=== PATIENT | male | born 1980 | race African-American/Black ===

== ENCOUNTER 2020-02-25 07:26 | Emergency (ER) | payer SELFPAY ==
[2020-02-25] MEDS ORDERED: Lasix 40 MG/4 ML IV ONE (07:42)
--- NOTE | 2020-02-25 07:47 | ERPHSYRPT ---
- History of Present Illness Time Seen by Provider: 02/25/20 07:30 Source: patient Exam Limitations: no limitations Physician History: The patient is a 39-year-old male with a reported history of "cardiomyopathy" that he states is "genetic" and who is also status post what sounds like a pacemaker defibrillator reportedly placed in 2019 presents with a chief complaint of shortness of breath. Onset reportedly was yesterday. He states he normally takes Lasix daily and finished his last dose yesterday and has not taken any today. He states he is visiting from [facility], specifically visiting his girlfriend and has not been taking his medications as prescribed. Of note, the patient was a very poor historian. He can tell me that his device is a [employer]. His shift engineer is reportedly Dr. Sorenson in [facility] at [facility] In addition to his shortness of breath he also complained of dyspnea on exertion as well as orthopnea. He denies chest pain, palpitations, dizziness, syncope. He also complained of acute on chronic low back pain. He denies history of PE or DVT and reportedly does not take any anticoagulants. He is supposed to take a baby aspirin daily. He is also reportedly supposed to be taking Entresto which she is not been taking as prescribed. Allergies/Adverse Reactions: No Known Drug Allergies Allergy (Verified 02/25/20 07:46) Home Medications: Furosemide 20 mg [Lasix 20 mg] 20 mg PO DAILY 02/25/20 [History] carvediloL [Carvedilol] 25 mg PO BID 02/25/20 [History] - Review of Systems Constitutional: No Fever, No Chills Eyes: No Symptoms Ears, Nose, & Throat: No Symptoms Respiratory: Dyspnea, Dyspnea on Exertion (FIERRO), Other (Orthopnea), No Cough Cardiac: No Chest Pain, No Edema, No Palpitations Abdominal/Gastrointestinal: No Abdominal Pain, No Nausea, No Vomiting Musculoskeletal: Back Pain Skin: No Symptoms Neurological: No Symptoms Psychological: No Symptoms Hematologic/Lymphatic: No Symptoms Immunological/Allergic: No Symptoms All Other Systems: Reviewed and Negative - Nursing Vital Signs Nursing Vital Signs: Initial Vital Signs Pulse Rate 107 H 02/25/20 07:27 Respiratory Rate 25 H 02/25/20 07:27 Blood Pressure 153/92 02/25/20 07:27 O2 Sat by Pulse Oximetry 99 02/25/20 07:27 Pain Scale Pain Intensity 0 - Physical Exam General Appearance: mild distress Eye Exam: PERRL/EOMI, eyes nml inspection, scleral icterus Ears, Nose, Throat Exam: No pharyngeal erythema, No tonsillar exudate Neck Exam: normal inspection, supple Respiratory Exam: diminished breath sounds, crackles/rales (Fine early inspiratory crackles noted in bilateral lower lobes when ausculatating posteriorly) Cardiovascular Exam: regular rate/rhythm, normal peripheral pulses, murmur, capillary refill <2 sec, No friction rub, No gallop, No edema, No pulse deficit Gastrointestinal/Abdomen Exam: soft, No tenderness, No distention, No mass Back Exam: normal inspection Extremity Exam: normal inspection, other (No asymmetric calf tenderness, swelling, or erythema to suggest DVT), No pedal edema, No swelling, No tenderness Neurologic Exam: alert, oriented x 3, cooperative SpO2: 99 - Course Nursing assessment & vital signs reviewed: Yes EKG Interpreted by Me: RATE, Other (Atrial-sensed ventricular-paced rhythm, No evidence of acute myocardial ischemia or injury pattern. Right axis deviation, Normal GA interval) - Radiology Exams Chest X-ray Interpretation: Reviewed by me (Pulmonary vascular congestion and small bilateral pleural effusions) - CT Exams Chest CT Interpretation: No PE (pulmonary edema, small bilateral pleural effusions), Other Ordered Tests: Active Orders 24 hr Category Date Time Status Nutrition Faculty Member STAT Care 02/25/20 07:43 Active EKG-ER Only STAT Care 02/25/20 07:42 Active IV Insertion STAT Care 02/25/20 07:42 Active Pulse Oximetry (ED) STAT Care 02/25/20 07:42 Active CHEST 2 VIEWS (PA AND LAT) Stat Exams 02/25/20 07:42 Completed CHEST WITH CONTRAST [CT] Stat Exams 02/25/20 08:21 Completed BMP Stat Lab 02/25/20 06:20 Completed CBC W DIFF Stat Lab 02/25/20 06:20 Completed D-DIMER QUANTITATIVE Stat Lab 02/25/20 06:20 Completed Hepatic Function Panel Stat Lab 02/25/20 06:20 Completed MAGNESIUM Stat Lab 02/25/20 06:20 Completed Manual Differential NC Stat Lab 02/25/20 06:20 Completed NT PRO BNP Stat Lab 02/25/20 06:20 Completed PHOSPHOROUS Stat Lab 02/25/20 06:20 Completed TROPONIN Q3H Lab 02/25/20 06:20 Completed TROPONIN Q3H Lab 02/25/20 10:45 Ordered TROPONIN Q3H Lab 02/25/20 13:45 Ordered TROPONIN Q3H Lab 02/25/20 16:45 Ordered TROPONIN Q3H Lab 02/25/20 19:45 Ordered UA W/RFX UR CULTURE Stat Lab 02/25/20 07:45 Completed Urine Triage Profile Stat Lab 02/25/20 07:55 Completed Transfer Order Routine Transfer 02/25/20 Ordered Medication Summary Discontinued Medications Generic Name Dose Route Start Last Admin Trade Name Maik PRN Reason Stop Dose Admin Fentanyl Citrate 50 mcg 02/25/20 08:30 02/25/20 08:33 Sublimaze 100 Mcg/2 Ml IV 02/25/20 08:31 50 mcg STAT ONE Administration Fentanyl Citrate Confirm 02/25/20 08:32 Sublimaze 100 Mcg/2 Ml Administered 02/25/20 08:33 Dose 100 mcg .ROUTE .STK-MED ONE Furosemide 20 mg 02/25/20 07:42 02/25/20 07:55 Lasix 40 Mg/4 Ml IV 02/25/20 07:43 20 mg STAT ONE Administration Furosemide Confirm 02/25/20 07:53 Lasix 40 Mg/4 Ml Administered 02/25/20 07:54 Dose 40 mg .ROUTE .STK-MED ONE Oxycodone/Acetaminophen 1 tab 02/25/20 08:29 02/25/20 08:33 Percocet Tablet 5/325mg PO 02/25/20 08:30 1 tab STAT ONE Administration Oxycodone/Acetaminophen Confirm 02/25/20 08:32 Percocet Tablet 5/325mg Administered 02/25/20 08:33 Dose 1 tab .ROUTE .STK-MED ONE Lab/Rad Data: Laboratory Result Diagrams 02/25/20 06:20 02/25/20 06:20 Laboratory Results 02/25/20 02/25/20 02/25/20 Range/Units 07:55 07:45 06:20 WBC (4.0-10.5) K/mm3 RBC (4.1-5.6) M/mm3 Hgb (12.5-18.0) gm/dl Hct (42-50) % MCV (78-100) fl MCH (26-32) pg MCHC (32-36) g/dl RDW (11.5-14.0) % Plt Count (150-450) K/mm3 MPV (7.5-11.0) fl Segmented Neutrophils (36.-66.) % Band Neutrophils (0.0-2.0) % Lymphocytes (Manual) (24-44) % Monocytes (Manual) (0.0-12.0) % Platelet Estimate (NORMAL) RBC Morphology D-Dimer (215-500) ng/mL Sodium (137-145) mmol/L Potassium (3.5-5.1) mmol/L Chloride (98-107) mmol/L Carbon Dioxide (22-30) mmol/L Anion Gap (5-15) MEQ/L BUN (9-20) mg/dL Creatinine (0.66-1.25) mg/dL Estimated GFR ML/MIN Glucose (74-106) mg/dL Calcium (8.4-10.2) mg/dL Phosphorus (2.5-4.5) mg/dL Magnesium (1.6-2.3) mg/dL Total Bilirubin (0.2-1.3) mg/dL Direct Bilirubin (0.0-0.4) mg/dL AST (17-59) U/L ALT (0-50) U/L Alkaline Phosphatase (38-126) U/L Troponin I 0.016 (0.000-0.034) ng/mL NT-Pro-B Natriuret Pep (0-450) pg/mL Serum Total Protein (6.3-8.2) g/dL Albumin (3.5-5.0) g/dL Urine Color YELLOW (YELLOW) Urine Appearance CLEAR (CLEAR) Urine pH 5.0 (5-6) Ur Specific Duvall 1.016 (1.005-1.025) Urine Protein NEGATIVE (Negative) Urine Ketones NEGATIVE (NEGATIVE) Urine Blood SMALL (0-5) Alberto/ul Urine Nitrite NEGATIVE (NEGATIVE) Urine Bilirubin NEGATIVE (NEGATIVE) Urine Urobilinogen NEGATIVE (0-1) mg/dL Ur Leukocyte Esterase NEGATIVE (NEGATIVE) Urine WBC (Auto) NONE (0-5) /HPF Urine RBC (Auto) NONE (0-2) /HPF U Epithel Cells (Auto) NONE (FEW) /HPF Urine Bacteria (Auto) NONE (NEGATIVE) /HPF Urine Mucus (Auto) SLIGHT (NEGATIVE) /HPF Urine Culture Reflexed NO (NO) Urine Glucose NEGATIVE (NEGATIVE) mg/dL Urine Opiates Level NEGATIVE (NEGATIVE) Ur Methadone NEGATIVE (NEGATIVE) Urine Barbiturates NEGATIVE (NEGATIVE) Ur Phencyclidine (PCP) NEGATIVE (NEGATIVE) Urine Amphetamine POSITIVE (NEGATIVE) U Benzodiazepine Level NEGATIVE (NEGATIVE) Urine Cocaine NEGATIVE (NEGATIVE) Urine Marijuana (THC) POSITIVE (NEGATIVE) 02/25/20 02/25/20 02/25/20 Range/Units 06:20 06:20 06:20 WBC 12.4 H (4.0-10.5) K/mm3 RBC 5.61 H (4.1-5.6) M/mm3 Hgb 16.1 (12.5-18.0) gm/dl Hct 48.2 (42-50) % MCV 85.9 (78-100) fl MCH 28.7 (26-32) pg MCHC 33.4 (32-36) g/dl RDW 13.8 (11.5-14.0) % Plt Count 218 (150-450) K/mm3 MPV 10.3 (7.5-11.0) fl Segmented Neutrophils 63 (36.-66.) % Band Neutrophils 2 (0.0-2.0) % Lymphocytes (Manual) 33 (24-44) % Monocytes (Manual) 2 (0.0-12.0) % Platelet Estimate NORMAL (NORMAL) RBC Morphology NORMAL D-Dimer 1336 H* (215-500) ng/mL Sodium 137 (137-145) mmol/L Potassium 4.8 (3.5-5.1) mmol/L Chloride 105 (98-107) mmol/L Carbon Dioxide 24 (22-30) mmol/L Anion Gap 12.3 (5-15) MEQ/L BUN 14 (9-20) mg/dL Creatinine 1.04 (0.66-1.25) mg/dL Estimated GFR > 60.0 ML/MIN Glucose 116 H (74-106) mg/dL Calcium 10.0 (8.4-10.2) mg/dL Phosphorus 3.6 (2.5-4.5) mg/dL Magnesium 1.8 (1.6-2.3) mg/dL Total Bilirubin 0.60 (0.2-1.3) mg/dL Direct Bilirubin 0.1 (0.0-0.4) mg/dL AST 36 (17-59) U/L ALT 36 (0-50) U/L Alkaline Phosphatase 54 (38-126) U/L Troponin I (0.000-0.034) ng/mL NT-Pro-B Natriuret Pep 538 H (0-450) pg/mL Serum Total Protein 8.0 (6.3-8.2) g/dL Albumin 4.6 (3.5-5.0) g/dL Urine Color (YELLOW) Urine Appearance (CLEAR) Urine pH (5-6) Ur Specific Duvall (1.005-1.025) Urine Protein (Negative) Urine Ketones (NEGATIVE) Urine Blood (0-5) Alberto/ul Urine Nitrite (NEGATIVE) Urine Bilirubin (NEGATIVE) Urine Urobilinogen (0-1) mg/dL Ur Leukocyte Esterase (NEGATIVE) Urine WBC (Auto) (0-5) /HPF Urine RBC (Auto) (0-2) /HPF U Epithel Cells (Auto) (FEW) /HPF Urine Bacteria (Auto) (NEGATIVE) /HPF Urine Mucus (Auto) (NEGATIVE) /HPF Urine Culture Reflexed (NO) Urine Glucose (NEGATIVE) mg/dL Urine Opiates Level (NEGATIVE) Ur Methadone (NEGATIVE) Urine Barbiturates (NEGATIVE) Ur Phencyclidine (PCP) (NEGATIVE) Urine Amphetamine (NEGATIVE) U Benzodiazepine Level (NEGATIVE) Urine Cocaine (NEGATIVE) Urine Marijuana (THC) (NEGATIVE) - Progress Progress: improved Progress Note: 02/25/20 08:05 The patient's pharmacy is a [facility] and we managed to find a medication list which shows that he has not had any Lasix filled since December 30, 2018. I also did an inspect report and noted that the patient only had tramadol and alprazolam prescribed in 2019, specifically in October. 02/25/20 08:05 I also researched the patient's cardiology office and will attempt to have the nurse to obtain records and have them faxed to our location, specifically any recent echocardiograms, cardiac catheterization report or cardiology progress notes. 02/25/20 08:06 Nontoxic in appearance. The patient presents with shortness of breath and orthopnea in the context of reported cardiomyopathy which I suspect to be from diastolic CHF and possible HOCM. This is likely secondary to medication n oncompliance. I will obtain labs to include CBC, BMP, BNP, cardiac markers and a two-view chest x-ray for further evaluation. Ongoing administer 20 mg of Lasix IV since it appears she is on 20 mg of Lasix p.o. I suspect this patient may need hospitalization and potential transfer to a facility with cardiology capability. 02/25/20 08:24 Chest x-ray reviewed and appears consistent with pulmonary vascular congestion. Also has cardiomegaly and his pacemaker AICD leads appear to be in place. His dimer is elevated and will follow up with a CTA of his chest to eval for PE. 02/25/20 09:04 I reviewed the patient's CTA and it appears he has no evidence of a PE and was some interstitial edema. Currently awaiting formal radiology review and report. Chest x-ray report from radiology is suggesting pulmonary vascular congestion with small bilateral pleural effusions. The patient's urine drug screen came back positive for amphetamines and marijuana. I plan on discussing the patient's use of amphetamines after his work-up is complete. 02/25/20 09:40 The patient ambulated while monitoring his SPO2 reading and got as low as 89% on room air but immediately improved while above 90% while at rest. His chest x- ray is reviewed and consistent with pulmonary edema with small bilateral pleural effusions and his CTA showed no evidence of PE. The radiologist appeared to be hedging and stated he cannot rule out an infective infiltrate however based on the patient's clinical symptomatology and exam findings and history I do not believe he is suffering from pneumonia at this time and therefore antibiotics were deferred. He did receive 20 mg of Lasix and had already urinated twice while in the emergency department. He was receptive to staying at this location at least for observation for diuresis. I did speak to the on-call admitting physician who agreed to admit the patient at this facility for observation while the patient is diuresed and the plan is to start the patient back on his prescribed medications before discharge. Given [place] and a poor historian I am concerned he cannot be safely discharged from the emergency department given that he will likely not be able to follow-up with his shift engineer within the next 24 to 48 hours in addition to potential that social situation, specifically that his girlfriend actually drove him from [place] to this location and he has no way getting back promptly. 02/25/20 09:46 I did asked about the patient's drug use, specifically any amphetamine use such as methamphetamines or IV drug use and the patient adamantly denies this. It is possible that the amphetamine resulting in his urine could be a false positive. , I am currently waiting for records to be faxed over from his shift engineer office located in [place]. Once these arrive, these will be scanned into his chart. Discussed with DrMacario: Taylor - Departure Departure Disposition: Observation Clinical Impression: Acute on chronic congestive heart failure, Dyspnea, Acute exacerbation of chronic low back pain, Noncompliance with medication regimen, Hypertension Condition: Stable Critical Care Time: No Referrals: DOCTOR,NO FAMILY [Primary Care Provider] - Instructions: Heart Failure
[2020-02-25] MEDS ORDERED: Lasix 40 MG/4 ML ONE (07:53)
[2020-02-25 08:01] LABS: Appearance CLEAR (CLEAR); Bilirubin NEGATIVE (NEGATIVE); Blood SMALL Ery/ul (0-5); Glucose NEGATIVE (NEGATIVE); Ketones NEGATIVE (NEGATIVE); Leukocyte Esterase NEGATIVE (NEGATIVE); Mucus SLIGHT /HPF (NEGATIVE); Nitrite NEGATIVE (NEGATIVE); Protein,Urine Dip NEGATIVE (Negative); Specific Gravity 1.016 (1.005-1.025); Urobilinogen NEGATIVE mg/dL (0-1)
[2020-02-25 08:01] LABS: Hematocrit 48.2 % (42-50); Hemoglobin 16.1 gm/dl (12.5-18.0); Mean Cell Volume 85.9 fl (78-100); Mean Corpuscular Hemoglobin 28.7 pg (26-32); Mean Corpuscular Hgb Concent. 33.4 g/dl (32-36); Mean Platelet Volume 10.3 fl (7.5-11.0); Platelet Count 218 K/mm3 (150-450); Red Blood Count 5.61 M/mm3 (4.1-5.6); Red Cell Distribution Width 13.8 % (11.5-14.0); White Blood Count 12.4 K/mm3 (4.0-10.5)
[2020-02-25 08:23] LABS: Barbiturate,Urine NEGATIVE (NEGATIVE); Benzodiazepine,Urine NEGATIVE (NEGATIVE); Cocaine,Urine NEGATIVE (NEGATIVE); Methadone,Urine NEGATIVE (NEGATIVE); Opiate,Urine NEGATIVE (NEGATIVE); PCP,Urine NEGATIVE (NEGATIVE); THC,Urine POSITIVE (NEGATIVE)
[2020-02-25 08:26] LABS: BAND 2 % (0.0-2.0); Lymphocytes 33 % (24-44); Monocyte 2 % (0.0-12.0); Neutrophils 63 % (36.-66.); Platelet Estimate NORMAL (NORMAL); Total Cells Counted 100
[2020-02-25] MEDS ORDERED: PERCOCET TABLET 5/325MG PO ONE (08:29)
[2020-02-25] MEDS ORDERED: SUBLIMAZE 100 MCG/2 ML IV ONE (08:30)
[2020-02-25] MEDS ORDERED: SUBLIMAZE 100 MCG/2 ML ONE (08:32)
[2020-02-25] MEDS ORDERED: PERCOCET TABLET 5/325MG ONE (08:32)
[2020-02-25 08:41] LABS: ALBUMIN 4.6 g/dL (3.5-5.0); ALKALINE PHOSPHATASE 54 U/L (38-126); ANION GAP 12.3 MEQ/L (5-15); BLOOD UREA NITROGEN 14 mg/dL (9-20); CHLORIDE 105 mmol/L (98-107); Carbon Dioxide 24 mmol/L (22-30); Creatinine 1 1.04 mg/dL (0.66-1.25); Direct Bilirubin 0.1 mg/dL (0.0-0.4); EST GLOMERULAR FILTRATION RATE > 60.0 ML/MIN; Glucose 116 mg/dL (74-106); MAGNESIUM 1.8 mg/dL (1.6-2.3); NT PRO BNP 538 pg/mL (0-450); PHOSPHOROUS 3.6 mg/dL (2.5-4.5); Potassium 4.8 mmol/L (3.5-5.1); SGOT/AST 36 U/L (17-59); SGPT/ALT 36 U/L (0-50); SODIUM 137 mmol/L (137-145)
[2020-02-25 08:44] LABS: Amphetamine,Urine POSITIVE (NEGATIVE)
--- NOTE | 2020-02-25 08:53 | XRAY ---
Indication: Short of breath. Comparison: None PA/lateral chest demonstrates mild pulmonary interstitial edema and tiny bibasilar effusions. Heart is borderline enlarged with left AICD. Bony thorax intact.
--- NOTE | 2020-02-25 09:20 | XRAY ---
Indication: Short of breath. Elevated d-dimer. Multiple contiguous axial images obtained through the chest using 80 cc Isovue 370 contrast and PE protocol. Comparison: None There is good opacification of the pulmonary arteries to include the lobar and segmental branches. No pulmonary embolus. Heart is enlarged with a left-sided AICD. No pericardial effusion. Aorta is normal in course and caliber without aneurysm/dissection. No pathologic mediastinal/hilar lymphadenopathy. Lungs demonstrates mild pulmonary edema with small bilateral effusions and minimal bibasilar subsegmental atelectasis/scarring. No suspicious pulmonary mass, focal infiltrate, or consolidation. Bony thorax intact with minimal degenerative changes throughout the spine. Limited upper abdomen including adrenal glands are unremarkable. Impression: 1. Negative pulmonary embolus. 2. Cardiomegaly, pulmonary edema, and bilateral effusions. Rule out cardiac decompensation. Superimposed pneumonia not completely excluded.
[2020-02-25] MEDS ORDERED: COREG 12.5 MG PO STA (09:48)
[2020-02-25] MEDS: TYLENOL EXTRA STRENGTH 500 MG PO PRN ×2 (19:58→23:52)
[2020-02-25] MEDS: COREG 12.5 MG PO SCH (21:40)
[2020-02-25] MEDS ORDERED: NON-FORMULARY ITEM (Carvedilol [Carvedilol] 25 MG) PO SCH (22:00)
[2020-02-26] MEDS: TYLENOL EXTRA STRENGTH 500 MG PO PRN (04:30)
[2020-02-26 05:21] LABS: Hematocrit 48.7 % (42-50); Hemoglobin 16.1 gm/dl (12.5-18.0); Mean Corpuscular Hemoglobin 28.4 pg (26-32); Mean Corpuscular Hgb Concent. 33.1 g/dl (32-36); Mean Platelet Volume 10.4 fl (7.5-11.0); Platelet Count 219 K/mm3 (150-450); Red Blood Count 5.66 M/mm3 (4.1-5.6); Red Cell Distribution Width 13.8 % (11.5-14.0); White Blood Count 10.9 K/mm3 (4.0-10.5)
[2020-02-26 05:45] LABS: ANION GAP 9.9 MEQ/L (5-15); BLOOD UREA NITROGEN 19 mg/dL (9-20); CHLORIDE 101 mmol/L (98-107); Calcium 9.5 mg/dL (8.4-10.2); Carbon Dioxide 26 mmol/L (22-30); Creatinine 1 1.01 mg/dL (0.66-1.25); EST GLOMERULAR FILTRATION RATE > 60.0 ML/MIN; Glucose 103 mg/dL (74-106); NT PRO BNP 311 pg/mL (0-450); Potassium 3.8 mmol/L (3.5-5.1); SODIUM 134 mmol/L (137-145)
[2020-02-26 07:23] VITALS: O2SAT 96
[2020-02-26] MEDS: COREG 12.5 MG PO SCH (09:43)
[2020-02-26] MEDS ORDERED: LASIX 20 MG PO SCH (10:00)
[2020-02-26 12:20] VITALS: BP 107/62; PULSE 93
--- NOTE | 2020-02-26 20:23 | PCM.SSS ---
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 Onset reportedly was yesterday. He states he normally takes Lasix daily and finished his last dose yesterday and has not taken any today. He states he is visiting from [facility], specifically visiting his girlfriend and has not been taking his medications as prescribed. Of note, the patient was a very poor historian. He can tell me that his device is a [employer]. His diet therapist is reportedly Dr. Mcgarry in [facility] at [facility] In addition to his shortness of breath he also complained of dyspnea on exertion as well as orthopnea. He denies chest pain, palpitations, dizziness, syncope. He also complained of acute on chronic low back pain. He denies history of PE or DVT and reportedly does not take any anticoagulants. He is supposed to take a baby aspirin daily. He is also reportedly supposed to be taking Entresto which he is not been taking as prescribed. - Review of Systems Constitutional: Weakness, No Fever, No Chills Eyes: No Symptoms Ears, Nose, & Throat: No Symptoms Respiratory: No Cough, No Short Of Breath Cardiac: Chest Pain, No Edema, No Syncope Abdominal/Gastrointestinal: No Abdominal Pain, No Nausea, No Vomiting, No Diarrhea Genitourinary Symptoms: No Dysuria Musculoskeletal: No Back Pain, No Neck Pain Skin: No Rash Neurological: No Dizziness, No Focal Weakness, No Sensory Changes Psychological: No Symptoms Endocrine: No Symptoms Hematologic/Lymphatic: No Symptoms Immunological/Allergic: No Symptoms Medications & Allergies Home Medications: Home Medication List Furosemide 20 mg [Lasix 20 mg] 20 mg PO DAILY #30 tablet 02/26/20 [Rx] carvediloL [Carvedilol] 25 mg PO BID #60 tablet 02/26/20 [Rx] Allergies/Adverse Reactions: Allergies Allergy/AdvReac Type Severity Reaction Status Date / Time No Known Drug Allergies Allergy Verified 02/25/20 07:46 - Past Medical History Past Medical History: Yes Neurological History: No Pertinent History ENT History: No Pertinent History Cardiac History: Hypertension Respiratory History: No Pertinent History Endocrine Medical History: No Pertinent History Musculoskelatal History: No Pertinent History GI Medical History: No Pertinent History History: No Pertinent History Pyscho-Social History: No Pertinent History Male Reproductive Disorders: No Pertinent History Comment: cardiomyopathy - Past Surgical History Past Surgical History: Yes Neuro Surgical History: No Pertinent History Cardiac History: Internal Defibrillator Respiratory Surgery: No Pertinent History GI Surgical History: Appendectomy Genitourinary Surgical Hx: No Pertinent History Musculskeletal Surgical Hx: No Pertinent History Male Surgical History: No Pertinent History Other Surgical History: defibulator 2019 - Social History Smoking Status: Former smoker Exposure to second hand smoke: No Alcohol: Rarely Drug Use: none - Physical Exam Vital Signs: Vital Signs - 24 hr Temp Pulse Resp BP Pulse Ox 02/26/20 12:00 98.4 F 93 H 16 107/62 96 02/26/20 07:23 98.3 F 86 17 115/61 96 02/26/20 06:48 94 L 02/26/20 04:00 98.3 F 91 H 16 118/71 96 02/25/20 23:59 98.0 F 67 14 105/62 92 L General Appearance: no apparent distress, alert Neurologic Exam: alert, oriented x 3, cooperative, normal mood/affect, nml cerebellar function, nml station & gait, sensation nml, No motor deficits Eye Exam: PERRL/EOMI, eyes nml inspection Ears, Nose, Throat Exam: normal ENT inspection, TMs normal, pharynx normal, moist mucous membranes Neck Exam: normal inspection, non-tender, supple, full range of motion Respiratory Exam: normal breath sounds, lungs clear, No respiratory distress Cardiovascular Exam: regular rate/rhythm, normal heart sounds, normal peripheral pulses Gastrointestinal/Abdomen Exam: soft, normal bowel sounds, No tenderness, No mass Back Exam: normal inspection, normal range of motion, No CVA tenderness, No vertebral tenderness Extremity Exam: normal inspection, normal range of motion, pelvis stable Skin Exam: normal color, warm, dry, No rash Lymphatic Exam: No adenopathy Results - Labs Lab/Micro Results: Lab Results-Last 24 Hours 02/25/20 02/26/20 02/26/20 Range/Units 19:45 04:32 04:32 WBC 10.9 H (4.0-10.5) K/mm3 RBC 5.66 H (4.1-5.6) M/mm3 Hgb 16.1 (12.5-18.0) gm/dl Hct 48.7 (42-50) % MCV 86.0 (78-100) fl MCH 28.4 (26-32) pg MCHC 33.1 (32-36) g/dl RDW 13.8 (11.5-14.0) % Plt Count 219 (150-450) K/mm3 MPV 10.4 (7.5-11.0) fl Sodium 134 L (137-145) mmol/L Potassium 3.8 D (3.5-5.1) mmol/L Chloride 101 (98-107) mmol/L Carbon Dioxide 26 (22-30) mmol/L Anion Gap 9.9 (5-15) MEQ/L BUN 19 (9-20) mg/dL Creatinine 1.01 (0.66-1.25) mg/dL Estimated GFR > 60.0 ML/MIN Glucose 103 (74-106) mg/dL Calcium 9.5 (8.4-10.2) mg/dL Troponin I < 0.012 (0.000-0.034) ng/mL NT-Pro-B Natriuret Pep 311 (0-450) pg/mL - Radiology Impressions Radiology Exams & Impressions: Radiology Procedures Category Date Time Status CHEST 2 VIEWS (PA AND LAT) Stat Exams 02/25/20 07:42 Completed CHEST WITH CONTRAST [CT] Stat Exams 02/25/20 08:21 Completed Assessment/Plan (1) Acute on chronic congestive heart failure Status: Acute Qualifiers: Heart failure type: combined systolic and diastolic Qualified Code(s): I50.43 - Acute on chronic combined systolic (congestive) and diastolic (congestive) heart failure Assessment & Plan: Chief Complaint Diagnosis Acute on Chornic diastolic CHF exacerbation Allergies Allergy/AdvReac Type Severity Reaction Status Date / Time No Known Drug Allergies Allergy Verified 02/25/20 07:46 Vital Signs (Last 24 hours) Temp Pulse Resp BP Pulse Ox 02/26/20 12:00 98.4 F 93 H 16 107/62 96 02/26/20 07:23 98.3 F 86 17 115/61 96 02/26/20 06:48 94 L 02/26/20 04:00 98.3 F 91 H 16 118/71 96 02/25/20 23:59 98.0 F 67 14 105/62 92 L Home Medications Medication Instructions Recorded Confirmed Last Taken Type Furosemide 20 mg [Lasix 20 20 mg PO DAILY #30 tablet 02/26/20 Unknown Rx mg] carvediloL [Carvedilol] 25 mg PO BID #60 tablet 02/26/20 Unknown Rx Current Medications Discontinued Medications Generic Name Dose Route Start Last Admin Trade Name Freq PRN Reason Stop Dose Admin Acetaminophen 500 mg 02/25/20 19:55 02/26/20 04:30 Tylenol Extra Strength 500 Mg PO 03/26/20 19:54 500 mg Q4H PRN PRN Administration PAIN Carvedilol 25 mg 02/25/20 09:48 02/25/20 10:20 Coreg 12.5 Mg PO 02/25/20 09:49 25 mg STAT STA Administration Carvedilol 25 mg 02/25/20 22:00 02/26/20 09:43 Coreg 12.5 Mg PO 03/26/20 21:59 25 mg BID TRUDY Administration Fentanyl Citrate 50 mcg 02/25/20 08:30 02/25/20 08:33 Sublimaze 100 Mcg/2 Ml IV 02/25/20 08:31 50 mcg STAT ONE Administration Fentanyl Citrate Confirm 02/25/20 08:32 Sublimaze 100 Mcg/2 Ml Administered 02/25/20 08:33 Dose 100 mcg .ROUTE .STK-MED ONE Furosemide 20 mg 02/25/20 07:42 02/25/20 07:55 Lasix 40 Mg/4 Ml IV 02/25/20 07:43 20 mg STAT ONE Administration Furosemide Confirm 02/25/20 07:53 Lasix 40 Mg/4 Ml Administered 02/25/20 07:54 Dose 40 mg .ROUTE .STK-MED ONE Furosemide 20 mg 02/26/20 10:00 02/26/20 09:43 Lasix 20 Mg PO 03/27/20 09:59 20 mg DAILY TRUDY Administration Oxycodone/Acetaminophen 1 tab 02/25/20 08:29 02/25/20 08:33 Percocet Tablet 5/325mg PO 02/25/20 08:30 1 tab STAT ONE Administration Oxycodone/Acetaminophen Confirm 02/25/20 08:32 Percocet Tablet 5/325mg Administered 02/25/20 08:33 Dose 1 tab .ROUTE .STK-MED ONE Intake & Output (Last 24 hours) 02/24/20 02/25/20 02/26/20 02/27/20 11:59 11:59 11:59 11:59 Intake Total 1420 Balance 1420 Weight 97.522 kg Laboratory Results (Last 24 hours) 02/26/20 02/26/20 02/25/20 04:32 04:32 19:45 WBC 10.9 H RBC 5.66 H Hgb 16.1 Hct 48.7 MCV 86.0 MCH 28.4 MCHC 33.1 RDW 13.8 Plt Count 219 MPV 10.4 Sodium 134 L Potassium 3.8 D Chloride 101 Carbon Dioxide 26 Anion Gap 9.9 BUN 19 Creatinine 1.01 Estimated GFR > 60.0 Glucose 103 Calcium 9.5 Troponin I < 0.012 NT-Pro-B Natriuret Pep 311 Orders (Last 24 hours) Category Date Time Status Discharge Routine Discharge 02/26/20 Ordered BMP AM.LAB Lab 02/26/20 04:32 Completed CBC AM.LAB Lab 02/26/20 04:32 Completed NT PRO BNP AM.LAB Lab 02/26/20 04:32 Completed TROPONIN Q3H Lab 02/25/20 19:45 Completed Acetaminophen 500 mg [Tylenol Extra Strength 500 mg* Med 02/25/20 19:55 Discontinued ] 500 mg PO Q4H PRN PRN Carvedilol 12.5 mg [Coreg 12.5 mg] Med 02/25/20 22:00 Discontinued 25 mg PO BID Furosemide 20 mg [Lasix 20 mg] Med 02/26/20 10:00 Discontinued 20 mg PO DAILY EKG IN AM RT 02/26/20 06:00 Completed Pulse Oximetry .spot check RT 02/26/20 05:05 Active Code(s): I50.9 - HEART FAILURE, UNSPECIFIED (2) Hypertension Status: Acute Qualifiers: Hypertension type: essential hypertension Qualified Code(s): I10 - Essential (primary) hypertension Code(s): I10 - ESSENTIAL (PRIMARY) HYPERTENSION (3) Noncompliance with medication regimen Status: Acute Code(s): Z91.14 - PATIENT'S OTHER NONCOMPLIANCE WITH MEDICATION REGIMEN Hospital Summary - Hospital Course Hospital Course: Last Vital Signs Temp 98.4 F 02/26/20 12:00 Pulse 93 H 02/26/20 12:00 Resp 16 02/26/20 12:00 BP 107/62 02/26/20 12:00 Pulse Ox 96 02/26/20 12:00 Allergies No Known Drug Allergies Allergy (Verified 02/25/20 07:46) Intake & Output 02/26/20 02/27/20 11:59 11:59 Intake Total 1420 Balance 1420 Orders 02/26/20 Discharge Routine 02/26/20 05:05 Pulse Oximetry .spot check Lab Tests 02/25/20 02/26/20 02/26/20 19:45 04:32 04:32 WBC 10.9 H RBC 5.66 H Hgb 16.1 Hct 48.7 MCV 86.0 MCH 28.4 MCHC 33.1 RDW 13.8 Plt Count 219 MPV 10.4 Sodium 134 L Potassium 3.8 D Chloride 101 Carbon Dioxide 26 Anion Gap 9.9 BUN 19 Creatinine 1.01 Estimated GFR > 60.0 Glucose 103 Calcium 9.5 Troponin I < 0.012 NT-Pro-B Natriuret Pep 311 - Vitals & Intake/Output Vital Signs: Vital Signs Temperature 98.4 F 02/26/20 12:00 Pulse Rate 93 H 02/26/20 12:00 Respiratory Rate 16 02/26/20 12:00 Blood Pressure 107/62 02/26/20 12:00 O2 Sat by Pulse Oximetry 96 02/26/20 12:00 Intake & Output: Intake & Output 02/24/20 02/25/20 02/26/20 02/27/20 11:59 11:59 11:59 11:59 Intake Total 1420 Balance 1420 Weight 97.522 kg - Lab Result Diagrams: 02/26/20 04:32 02/26/20 04:32 Lab Results-Last 24 Hrs: Lab Results-Last 24 Hours 02/25/20 02/26/20 02/26/20 Range/Units 19:45 04:32 04:32 WBC 10.9 H (4.0-10.5) K/mm3 RBC 5.66 H (4.1-5.6) M/mm3 Hgb 16.1 (12.5-18.0) gm/dl Hct 48.7 (42-50) % MCV 86.0 (78-100) fl MCH 28.4 (26-32) pg MCHC 33.1 (32-36) g/dl RDW 13.8 (11.5-14.0) % Plt Count 219 (150-450) K/mm3 MPV 10.4 (7.5-11.0) fl Sodium 134 L (137-145) mmol/L Potassium 3.8 D (3.5-5.1) mmol/L Chloride 101 (98-107) mmol/L Carbon Dioxide 26 (22-30) mmol/L Anion Gap 9.9 (5-15) MEQ/L BUN 19 (9-20) mg/dL Creatinine 1.01 (0.66-1.25) mg/dL Estimated GFR > 60.0 ML/MIN Glucose 103 (74-106) mg/dL Calcium 9.5 (8.4-10.2) mg/dL Troponin I < 0.012 (0.000-0.034) ng/mL NT-Pro-B Natriuret Pep 311 (0-450) pg/mL - Radiology Exams Ordered Rad Exams-Entire Visit: Radiology Procedures Category Date Time Status CHEST 2 VIEWS (PA AND LAT) Stat Exams 02/25/20 07:42 Completed CHEST WITH CONTRAST [CT] Stat Exams 02/25/20 08:21 Completed - Procedures and Test Procedures and Tests throughout Hospitalization: Therapy Orders & Screens 02/25/20 11:31 Oxygen NASAL CANNULA 2 lpm Comment: Diagnosis: CHF 02/26/20 06:00 EKG IN AM Comment: - Discharge Discharge Date: 02/26/20 Disposition: Home, Self-Care Condition: Stable Prescriptions: Continue carvediloL [Carvedilol] 25 mg PO BID #60 tablet Furosemide 20 mg [Lasix 20 mg] 20 mg PO DAILY #30 tablet Instructions: Heart Failure, Adult (DC), Shortness of Breath (Dyspnea) (DC) Additional Instructions: FOLLOW-UP WITH YOUR BRUSH CLEARER SURVEYING, DR. MCGARRY, TO DISCUSS SLEEP STUDY. Forms: Discharge Instructions
== END 2020-02-26 13:57 | disposition home or self-care (01) ==
LOC: ED 07:26 → MED SURG 11:10
PROVIDERS: ADMIT General Practice; ATTEND General Practice
DX: I11.0 Hypertensive heart disease with heart failure (principal); I50.33 Acute on chronic diastolic (congestive) heart failure; Z91.14 Patient's other noncompliance with medication regimen; Z79.899 Other long term (current) drug therapy
CPT/HCPCS: 36000; 36415; 71046; 71260; 80048; 80076; 80307; 81001; 83735; 83880; 84100; 84484; 85025; 85027; 85379; 93005; 93041; 93268; 94760; 96374; 96375; 99285; G0378; U0003; J1940; J3010; A9270-GY

== ENCOUNTER 2020-10-19 04:22 | Emergency (ER) | payer SELFPAY ==
[2020-10-19] MEDS ORDERED: PROTONIX 40 MG IV IV ONE ×2 (04:52→04:56)
[2020-10-19] MEDS ORDERED: GI COCKTAIL 45 ML (Maalox/Lidocaine) PO ONE (04:52)
[2020-10-19] MEDS ORDERED: MAALOX ES 30 ML UNIT DOSE ONE (04:57)
[2020-10-19] MEDS ORDERED: XYLOCAINE HCl Viscous ONE (04:57)
--- NOTE | 2020-10-19 05:04 | ERPHSYRPT ---
<DELL BREWER - Last Filed: 10/19/20 06:59> - History of Present Illness Time Seen by Provider: 10/19/20 04:50 Historian: patient Exam Limitations: no limitations Patient Subjective Stated Complaint: pt states he started having mid chest pain last night, pain got better, he went to sleep and woke up with pain again this morning. Triage Nursing Assessment: pt alert and oriented, answers questions approp. pt ambulatory with steady gait noted. respirations nonlabored with lungs cta. skin cool and clammy. heart rate 90 on monitor, sinus rhythm on monitor. Physician History: 40 years old -[place] male with history of cardiomyopathy status post pacemaker/defibrillator placement, hypertension, GERD not on any medication presented in the ER with sudden onset substernal/epigastric area burning chest pain last night which improved after taking Pepto-Bismol, patient went to bed and waking him up again almost half an hour prior to arrival. Patient reports earlier it was 9/10 intensity and currently improved to 2/10 without having any shortness of breath at any point. No palpitations. Reports having similar symptoms in the past as well. No history of stenting/CAD. Timing/Duration: yesterday, improved Activities at Onset: sleep Quality: burning Location: central, epigastric Chest Pain Radiation: no radiation Severity of Pain-Max: severe Severity of Pain-Current: mild Modifying Factors: Improves With: antacids, sitting up. Worsens With: lying down Associated Symptoms: heartburn, No nausea, No vomiting, No palpitations, No abdominal pain, No shortness of breath, No cough, No hurts to breathe, No diaphoresis, No fever, No fatigue, No weakness, No swelling/lump in chest, No syncope Prior Chest Pain/Cardiac Workup: cardiac cath Nitro Today/Relief: no nitro taken today Aspirin Treatment Today: 81 mg x 3 Allergies/Adverse Reactions: No Known Drug Allergies Allergy (Verified 02/25/20 07:46) Home Medications: Aspirin EC 81 mg [Ecotrin 81 mg] 243 mg PO BID 10/19/20 [History] Furosemide 20 mg [Lasix 20 mg] 40 mg PO DAILY 10/19/20 [History] Sacubitril/Valsartan [Entresto 24 mg-26 mg Tablet] 1 each PO BID 10/19/20 [History] Hx Tetanus, Diphtheria Vaccination/Date Given: Yes Hx Influenza Vaccination/Date Given: No Hx Pneumococcal Vaccination/Date Given: No Immunizations Up to Date: Yes Travel Risk - International Travel Have you traveled outside of the country in past 3 weeks: No - Coronavirus Screening Are you exhibiting any of the following symptoms?: Yes Symptoms: Shortness of Breath, Vomiting/Diarrhea, Headaches/Body Aches/Fatigue Close contact with a COVID-19 positive Pt in past 14-21 Days: Yes - Vaccine Status Have you recieved a Covid-19 vaccination: No - Review of Systems Constitutional: No Symptoms Eyes: No Symptoms Ears, Nose, & Throat: No Symptoms Respiratory: No Symptoms Cardiac: Chest Pain Abdominal/Gastrointestinal: No Symptoms Genitourinary Symptoms: No Symptoms Musculoskeletal: No Symptoms Skin: No Symptoms Neurological: No Symptoms Psychological: No Symptoms Endocrine: No Symptoms Hematologic/Lymphatic: No Symptoms Immunological/Allergic: No Symptoms - Past Medical History Pertinent Past Medical History: Yes Neurological History: No Pertinent History ENT History: No Pertinent History Cardiac History: Hypertension, Other Respiratory History: No Pertinent History Endocrine Medical History: No Pertinent History Musculoskeletal History: No Pertinent History GI Medical History: No Pertinent History History: No Pertinent History Psycho-Social History: No Pertinent History Male Reproductive Disorders: No Pertinent History Other Medical History: cardiomyopathy - Past Surgical History Past Surgical History: Yes Neuro Surgical History: No Pertinent History Cardiac: Internal Defibrillator Respiratory: No Pertinent History Gastrointestinal: Appendectomy Genitourinary: No Pertinent History Musculoskeletal: No Pertinent History Male Surgical History: No Pertinent History Other Surgical History: defibulator 2019 - Social History Smoking Status: Former smoker Exposure to second hand smoke: No Drug Use: none Patient Lives Alone: No - Physical Exam General Appearance: no apparent distress, alert Eye Exam: PERRL/EOMI Ears, Nose, Throat Exam: normal ENT inspection, pharynx normal Neck Exam: normal inspection, non-tender, supple, full range of motion Respiratory Exam: normal breath sounds, lungs clear Cardiovascular Exam: regular rate/rhythm, normal heart sounds Gastrointestinal/Abdomen Exam: soft, normal bowel sounds, No tenderness Back Exam: normal inspection, normal range of motion Extremity Exam: normal inspection, normal range of motion Neurologic Exam: alert, oriented x 3, cooperative, can worker II-XII nml as tested Skin Exam: normal color SpO2 Interpretation: normal SpO2: 99 O2 Delivery: Room Air - Course EKG Interpreted by Me: RATE (86), Sinus Rhythm, NORMAL AXIS, NORMAL INTERVALS, Other (Paced) - Progress Progress: improved Air Movement: good Progress Note: 10/19/20 06:59 40 years old is evaluated for substernal burning sensations. Given GI cocktail and Protonix, on reevaluation his pain is completely resolved. Negative initial troponins. Chest x-ray reviewed by me did not reveal any acute findings. Official report is pending. We will obtain second troponin and if negative patient will be discharged. Reviewed history and work-up with Dr. Khan incoming physician at shift change and he will reevaluate patient after second troponin make decision about disposition. Counseled pt/family regarding: lab results, diagnosis, need for follow-up, rad results - Departure Clinical Impression: Chest pain Condition: Stable Referrals: DOCTOR,NO FAMILY [Primary Care Provider] - Instructions: Chest Pain (DC) Additional Instructions: Continue current medications Follow up with your racing secretary and handicapper in 1-2 days Return to ER for worsening chest pain or increasing shortness of breath <JACK KHAN - Last Filed: 10/19/20 08:29> - Nursing Vital Signs Nursing Vital Signs: Initial Vital Signs Temperature 97.2 F 10/19/20 04:23 Pulse Rate 90 10/19/20 04:23 Respiratory Rate 18 10/19/20 04:23 Blood Pressure 137/95 10/19/20 04:23 O2 Sat by Pulse Oximetry 99 10/19/20 04:23 Pain Scale Pain Intensity 0 Ordered Tests: Active Orders 24 hr Category Date Time Status Dining Room Cashier STAT Care 10/19/20 04:51 Active EKG-ER Only STAT Care 10/19/20 04:50 Active IV Insertion STAT Care 10/19/20 04:50 Active CHEST 1 VIEW (PORTABLE) Stat Exams 10/19/20 04:51 Taken CBC W DIFF Stat Lab 10/19/20 04:50 Completed CMP Stat Lab 10/19/20 04:50 Completed NT PRO BNP Stat Lab 10/19/20 04:50 Completed TROPONIN Q3H Lab 10/19/20 05:00 Completed TROPONIN Q3H Lab 10/19/20 07:50 Completed TROPONIN Q3H Lab 10/19/20 11:00 Ordered TROPONIN Q3H Lab 10/19/20 14:00 Ordered TROPONIN Q3H Lab 10/19/20 17:00 Ordered Medication Summary Discontinued Medications Generic Name Dose Route Start Last Admin Trade Name Maik PRN Reason Stop Dose Admin Al Hydrox/Mg Hydrox/Simethicone Confirm 10/19/20 04:57 Maalox Es 30 Ml Unit Dose Administered 10/19/20 04:58 Dose 30 ml .ROUTE .STK-MED ONE Lidocaine HCl Confirm 10/19/20 04:57 Xylocaine Hcl Viscous * Administered 10/19/20 04:58 Dose 15 ml .ROUTE .STK-MED ONE Magnesium Hydroxide 45 ml 10/19/20 04:52 10/19/20 05:04 Gi Cocktail 45 Ml (Maalox/Lidocaine) PO 10/19/20 04:53 45 ml STAT ONE Administration Pantoprazole Sodium 40 mg 10/19/20 04:52 10/19/20 05:04 Protonix 40 Mg Iv IV 10/19/20 04:53 40 mg STAT ONE Administration Pantoprazole Sodium Confirm 10/19/20 04:56 Protonix 40 Mg Iv Administered 10/19/20 04:57 Dose 40 mg IV .STK-MED ONE Lab/Rad Data: Laboratory Result Diagrams 10/19/20 04:50 10/19/20 04:50 Laboratory Results 10/19/20 10/19/20 10/19/20 Range/Units 07:50 05:00 04:50 WBC (4.0-10.5) K/mm3 RBC (4.1-5.6) M/mm3 Hgb (12.5-18.0) gm/dl Hct (42-50) % MCV (78-100) fl MCH (26-32) pg MCHC (32-36) g/dl RDW (11.5-14.0) % Plt Count (150-450) K/mm3 MPV (7.5-11.0) fl Gran % (36.0-66.0) % Eos # (Auto) (0-0.5) Absolute Lymphs (auto) (1.0-4.6) Absolute Monos (auto) (0.0-1.3) Lymphocytes % (24.0-44.0) % Monocytes % (0.0-12.0) % Eosinophils % (0.00-5.0) % Basophils % (0.0-0.4) % Absolute Granulocytes (1.4-6.9) Basophils # (0-0.4) Sodium 139 (137-145) mmol/L Potassium 4.1 (3.5-5.1) mmol/L Chloride 106 (98-107) mmol/L Carbon Dioxide 21 L (22-30) mmol/L Anion Gap 16.2 H (5-15) MEQ/L BUN 20 (9-20) mg/dL Creatinine 1.13 (0.66-1.25) mg/dL Estimated GFR > 60.0 ML/MIN Glucose 102 (74-106) mg/dL Calcium 9.2 (8.4-10.2) mg/dL Total Bilirubin 0.30 (0.2-1.3) mg/dL AST 28 (17-59) U/L ALT 27 (0-50) U/L Alkaline Phosphatase 59 (38-126) U/L Troponin I < 0.012 < 0.012 (0.000-0.034) ng/mL NT-Pro-B Natriuret Pep 407 (0-450) pg/mL Serum Total Protein 7.2 (6.3-8.2) g/dL Albumin 4.2 (3.5-5.0) g/dL 10/19/20 Range/Units 04:50 WBC 10.6 H (4.0-10.5) K/mm3 RBC 5.86 H (4.1-5.6) M/mm3 Hgb 16.7 (12.5-18.0) gm/dl Hct 50.5 H (42-50) % MCV 86.2 (78-100) fl MCH 28.5 (26-32) pg MCHC 33.1 (32-36) g/dl RDW 13.7 (11.5-14.0) % Plt Count 225 (150-450) K/mm3 MPV 10.8 (7.5-11.0) fl Gran % 45.5 (36.0-66.0) % Eos # (Auto) 0.25 (0-0.5) Absolute Lymphs (auto) 4.52 (1.0-4.6) Absolute Monos (auto) 0.98 (0.0-1.3) Lymphocytes % 42.5 (24.0-44.0) % Monocytes % 9.2 (0.0-12.0) % Eosinophils % 2.3 (0.00-5.0) % Basophils % 0.5 (0.0-0.4) % Absolute Granulocytes 4.84 (1.4-6.9) Basophils # 0.05 (0-0.4) Sodium (137-145) mmol/L Potassium (3.5-5.1) mmol/L Chloride (98-107) mmol/L Carbon Dioxide (22-30) mmol/L Anion Gap (5-15) MEQ/L BUN (9-20) mg/dL Creatinine (0.66-1.25) mg/dL Estimated GFR ML/MIN Glucose (74-106) mg/dL Calcium (8.4-10.2) mg/dL Total Bilirubin (0.2-1.3) mg/dL AST (17-59) U/L ALT (0-50) U/L Alkaline Phosphatase (38-126) U/L Troponin I (0.000-0.034) ng/mL NT-Pro-B Natriuret Pep (0-450) pg/mL Serum Total Protein (6.3-8.2) g/dL Albumin (3.5-5.0) g/dL - Progress Progress Note: 10/19/20 07:42 Assumed care of 40 yo AAM w h/o cardiomyopathy/pacer-AICD w mid-sternal "chest burning" beginning at 21:00 0n 10/19/20. Pt w minimal pain at present but states that he is mildly dyspneic. Pain did not radiate and was not accompanied N/V/Diaphoresis. Cardiomyopathy is genetic, and he is not on the transplantation list. He also has a h/o HTN. Alert and oriented x3 in NAD Lungs-Faint rales at bases B Heart RRR woM Abdomen-soft, nttp No edema Neuro-focally intact 10/19/20 08:27 Trop neg x2 Pt in NAD 20mg IV Lasix due to subjective dyspnea. Pt's CXR wo CHF and BNP wnl. - Departure Departure Disposition: Home Critical Care Time: No
[2020-10-19 05:35] LABS: Absolute Neutrophil Ct (ANC) 4.84 (1.4-6.9); BASOPHIL % 0.5 % (0.0-0.4); Basophil (Absolute #) 0.05 (0-0.4); Eosinophil % 2.3 % (0.00-5.0); Eosinophil (Absolute #) 0.25 (0-0.5); Hematocrit 50.5 % (42-50); Hemoglobin 16.7 gm/dl (12.5-18.0); Lymphocyte (Absolute #) 4.52 (1.0-4.6); Lymphocytes % 42.5 % (24.0-44.0); Mean Cell Volume 86.2 fl (78-100); Mean Corpuscular Hemoglobin 28.5 pg (26-32); Mean Corpuscular Hgb Concent. 33.1 g/dl (32-36); Mean Platelet Volume 10.8 fl (7.5-11.0); Monocyte (Absolute #) 0.98 (0.0-1.3); Monocytes % 9.2 % (0.0-12.0); Neutrophil % 45.5 % (36.0-66.0); Platelet Count 225 K/mm3 (150-450); Red Blood Count 5.86 M/mm3 (4.1-5.6); Red Cell Distribution Width 13.7 % (11.5-14.0); White Blood Count 10.6 K/mm3 (4.0-10.5)
[2020-10-19 05:49] LABS: ALBUMIN 4.2 g/dL (3.5-5.0); ALKALINE PHOSPHATASE 59 U/L (38-126); ANION GAP 16.2 MEQ/L (5-15); BLOOD UREA NITROGEN 20 mg/dL (9-20); CHLORIDE 106 mmol/L (98-107); Calcium 9.2 mg/dL (8.4-10.2); Carbon Dioxide 21 mmol/L (22-30); Creatinine 1 1.13 mg/dL (0.66-1.25); EST GLOMERULAR FILTRATION RATE > 60.0 ML/MIN; Glucose 102 mg/dL (74-106); NT PRO BNP 407 pg/mL (0-450); Potassium 4.1 mmol/L (3.5-5.1); SGOT/AST 28 U/L (17-59); SGPT/ALT 27 U/L (0-50); SODIUM 139 mmol/L (137-145); Total Protein 7.2 g/dL (6.3-8.2)
[2020-10-19] MEDS ORDERED: Lasix 20 MG/2 ML IV ONE (08:27)
[2020-10-19] MEDS ORDERED: Lasix 40 MG/4 ML ONE (08:30)
[2020-10-19 08:37] VITALS: BP 125/92; PULSE 81; O2SAT 98
--- NOTE | 2020-10-19 09:04 | XRAY ---
Indication: Chest pain. Comparison: February 25, 2020. Portable apical lordotic chest clear. Heart remains borderline enlarged again with left AICD. Bony thorax intact. No new/acute findings.
== END 2020-10-19 08:44 | disposition home or self-care (01) ==
LOC: ED 04:22
DX: R07.89 Other chest pain (principal); Z95.0 Presence of cardiac pacemaker; I10 Essential (primary) hypertension
CPT/HCPCS: 36000; 36415; 71045; 80053; 83880; 84484; 85025; 93005; 93041; 96374; 96375; 99284; J1940; A9270-GY